=== PATIENT | male | born 1995 | race Caucasian/White ===

== ENCOUNTER 2021-11-27 17:40 | Emergency (ER) | payer SELFPAY | END 2021-11-27 19:05 | LOC: JD.ED 17:40 | DX: Z53.21 Procedure and treatment not carried out due to patient leaving prior to being seen by health care provider (principal) ==

== ENCOUNTER 2021-11-28 14:29 | Inpatient (IN) | payer SELFPAY ==
[2021-11-28] MEDS ORDERED: Ondansetron 4 MG/2 ML SDV IVPUSH ONE (15:55)
[2021-11-28] MEDS ORDERED: Sodium Chloride 0.9% 1,000 ML IV ONE ×2 (15:55→17:26)
[2021-11-28] MEDS: Sodium Chloride 0.9% 10 ML Syringe FLUSH PRN ×3 (16:09→21:12)
[2021-11-28 16:41] LABS: ESTIMATED GFR 121 mL/min (>60)
[2021-11-28] MEDS ORDERED: HYDROmorphone 0.5 MG/0.5 ML Syringe IVPUSH ONE (17:26)
[2021-11-28] MEDS ORDERED: Iopamidol 612 MG/ML 100 ML Bottle IVPUSH ONE (17:53)
[2021-11-28] MEDS ORDERED: Ondansetron 4 MG Tab.DIS PO PRN (19:53)
[2021-11-28] MEDS: Dextrose 5%-0.45% NaCl 1,000 ML IV SCH (21:11)
[2021-11-28] MEDS ORDERED: Thiamine 200 MG/2 ML MDV IVPUSH ONE (21:26)
[2021-11-28] MEDS: HYDROmorphone 0.5 MG/0.5 ML Syringe IVPUSH PRN (21:29)
[2021-11-28] MEDS: LORazepam 2 MG/ML SDV IVPUSH PRN (21:44)
[2021-11-28] MEDS: Enoxaparin 30 MG/0.3 ML Syringe SUBCUT SCH (22:26)
[2021-11-29] MEDS: HYDROmorphone 0.5 MG/0.5 ML Syringe IVPUSH PRN ×5 (01:41→22:18)
[2021-11-29] MEDS: Dextrose 5%-0.45% NaCl 1,000 ML IV SCH ×3 (05:12→21:36)
[2021-11-29] MEDS: Enoxaparin 30 MG/0.3 ML Syringe SUBCUT SCH (10:11)
[2021-11-29] MEDS: Pantoprazole 40 MG Vial IVPUSH SCH (10:11)
[2021-11-29] MEDS: LORazepam 2 MG/ML SDV IVPUSH PRN ×3 (12:41→22:18)
[2021-11-29] MEDS: Potassium Chloride 10 MEQ in Premix Bag 1 BAG IV SCH ×3 (14:31→16:36)
[2021-11-29] MEDS ORDERED: Magnesium Hydroxide 400 MG/5 ML Susp 30 ML Cup PO PRN (15:13)
[2021-11-29] MEDS: Thiamine 100 MG Tab PO SCH (21:36)
[2021-11-30] MEDS: HYDROmorphone 0.5 MG/0.5 ML Syringe IVPUSH PRN (05:03)
[2021-11-30] MEDS: LORazepam 2 MG/ML SDV IVPUSH PRN ×4 (05:04→18:37)
[2021-11-30] MEDS: Dextrose 5%-0.45% NaCl 1,000 ML IV SCH (05:04)
[2021-11-30] MEDS: Pantoprazole 40 MG Vial IVPUSH SCH (09:08)
[2021-11-30] MEDS: Enoxaparin 30 MG/0.3 ML Syringe SUBCUT SCH (09:08)
[2021-11-30] MEDS ORDERED: LORazepam 1 MG Tab PO SCH (14:30)
[2021-11-30] MEDS ORDERED: LORazepam 2 MG/ML SDV IV SCH (14:30)
[2021-11-30] MEDS ORDERED: LORazepam 2 MG/ML SDV IVPUSH PRN (14:31)
[2021-11-30] MEDS: LORazepam 2 MG/ML SDV IVPUSH ONE ×3 (14:50→15:03)
[2021-11-30] MEDS ORDERED: LORazepam 2 MG/ML SDV IVPUSH ONE (16:00)
[2021-11-30] MEDS ORDERED: PHENobarbital Sodium 65 MG/ML SDV IVPUSH ONE ×2 (17:35→18:17)
[2021-11-30] MEDS ORDERED: PHENobarbital Sodium 65 MG/ML SDV ONE (18:22)
[2021-12-01] MEDS: Thiamine 100 MG Tab PO SCH ×2 (01:06→21:45)
[2021-12-01] MEDS: HYDROmorphone 0.5 MG/0.5 ML Syringe IVPUSH PRN (05:24)
[2021-12-01] MEDS: Enoxaparin 30 MG/0.3 ML Syringe SUBCUT SCH (08:08)
[2021-12-01] MEDS: Pantoprazole 40 MG Vial IVPUSH SCH (08:08)
[2021-12-01] MEDS: LORazepam 2 MG/ML SDV IVPUSH PRN ×2 (08:17→20:12)
[2021-12-02 07:42] LABS: ESTIMATED GFR 121 mL/min (>60)
[2021-12-02] MEDS: Pantoprazole 40 MG Vial IVPUSH SCH (08:42)
[2021-12-02] MEDS: Enoxaparin 30 MG/0.3 ML Syringe SUBCUT SCH (08:42)
[2021-12-02] MEDS: Potassium Chloride 10 MEQ in Premix Bag 1 BAG IV SCH ×4 (08:44→11:51)
[2021-12-02] MEDS: LORazepam 2 MG/ML SDV IVPUSH PRN ×2 (08:55→16:44)
[2021-12-02] MEDS: HYDROmorphone 0.5 MG/0.5 ML Syringe IVPUSH PRN ×2 (12:16→21:22)
[2021-12-02] MEDS: Thiamine 100 MG Tab PO SCH (21:19)
[2021-12-03] MEDS: Enoxaparin 30 MG/0.3 ML Syringe SUBCUT SCH (09:16)
[2021-12-03] MEDS: Pantoprazole 40 MG Vial IVPUSH SCH (09:17)
[2021-12-03] MEDS: traMADol 50 MG Tab PO PRN ×2 (09:46→16:28)
[2021-12-03] MEDS: Thiamine 100 MG Tab PO SCH (20:02)
[2021-12-04] MEDS: Pantoprazole 40 MG Vial IVPUSH SCH (09:50)
[2021-12-04] MEDS: Enoxaparin 30 MG/0.3 ML Syringe SUBCUT SCH (09:50)
== END 2021-12-04 13:07 | disposition home or self-care (01) | DRG 439 ==
LOC: JD.ED 14:29 → JD.ICU 20:00 → UNDOADMIN 20:00 → JD.MS 11-29 18:49 → JD.ICU 11-30 18:27 → JD.MS 12-03 08:07
PROVIDERS: ADMIT Physician Assistant; ATTEND Pediatrics
DX: K85.20 Alcohol induced acute pancreatitis without necrosis or infection (principal); F10.231 Alcohol dependence with withdrawal delirium; K70.10 Alcoholic hepatitis without ascites; E86.0 Dehydration; K29.00 Acute gastritis without bleeding; D69.6 Thrombocytopenia, unspecified
CPT/HCPCS: 36415; 74177; 74177-26; 80048; 80053; 80307; 81001; 83690; 83735; 84484; 85025; 86140; 96361; 96374; 96375; 99283; 99285-25; A9270-GY; C9113; J1170; J1650; J2060; J2405; J2560; J3411; J3480; J3490; J7030; J7042; Q9967

== ENCOUNTER 2022-01-23 22:26 | Emergency (ER) | payer SELFPAY ==
[2022-01-23] MEDS ORDERED: Diphtheria,Pertussis(Acell),Tetanus Vaccine 0.5 ML Syringe IM ONE ×2 (23:13→23:48)
== END 2022-01-24 00:08 | disposition home or self-care (01) ==
LOC: JD.ED 22:26
DX: Z48.00 Encounter for change or removal of nonsurgical wound dressing (principal); Z23 Encounter for immunization; Z72.0 Tobacco use
CPT/HCPCS: 90471; 90715; 99282-25

== ENCOUNTER 2022-04-13 18:36 | Inpatient (IN) | payer SELFPAY ==
[2022-04-13] MEDS ORDERED: Sodium Chloride 0.9% 10 ML Syringe FLUSH PRN (19:17)
[2022-04-13] MEDS ORDERED: Sodium Chloride 0.9% 1,000 ML IV STA ×2 (19:39→21:42)
[2022-04-13] MEDS ORDERED: HYDROmorphone 0.5 MG/0.5 ML Syringe IVPUSH ONE ×2 (19:39→21:03)
[2022-04-13] MEDS ORDERED: Ondansetron 4 MG/2 ML SDV IVPUSH ONE (19:39)
[2022-04-13 20:52] LABS: ESTIMATED GFR 106 mL/min (>60)
[2022-04-13] MEDS ORDERED: Ketorolac 30 MG/ML SDV IVPUSH ONE (21:06)
[2022-04-13] MEDS ORDERED: Iopamidol 612 MG/ML 100 ML Bottle IVPUSH ONE (23:31)
[2022-04-14] MEDS ORDERED: Ondansetron 4 MG/2 ML SDV IVPUSH PRN ×2 (00:40→01:06)
[2022-04-14] MEDS: HYDROmorphone 0.5 MG/0.5 ML Syringe IVPUSH PRN ×10 (00:53→23:06)
[2022-04-14] MEDS: LORazepam 2 MG/ML SDV IVPUSH PRN ×6 (03:11→23:05)
[2022-04-14] MEDS: Sodium Chloride 0.9% 1,000 ML IV SCH ×4 (03:39→21:09)
[2022-04-14] MEDS ORDERED: chlordiazePOXIDE 10 MG Cap PO PRN (07:45)
[2022-04-14] MEDS: Heparin Sodium 5,000 Units/ML Vial SUBCUT SCH ×2 (10:00→17:13)
[2022-04-14] MEDS: Ketorolac 30 MG/ML SDV IVPUSH PRN (13:56)
[2022-04-15] MEDS: LORazepam 2 MG/ML SDV IVPUSH PRN ×3 (01:35→05:56)
[2022-04-15] MEDS: HYDROmorphone 0.5 MG/0.5 ML Syringe IVPUSH PRN ×8 (01:35→20:23)
[2022-04-15] MEDS: Heparin Sodium 5,000 Units/ML Vial SUBCUT SCH ×3 (01:35→17:36)
[2022-04-15] MEDS: Sodium Chloride 0.9% 1,000 ML IV SCH (02:53)
[2022-04-15] MEDS: Dextrose 5%-0.45% NaCl 1,000 ML IV SCH ×2 (08:07→15:46)
[2022-04-15] MEDS: Ketorolac 30 MG/ML SDV IVPUSH PRN (12:10)
[2022-04-16] MEDS: HYDROmorphone 0.5 MG/0.5 ML Syringe IVPUSH PRN ×6 (00:02→18:57)
[2022-04-16] MEDS: Dextrose 5%-0.45% NaCl 1,000 ML IV SCH ×3 (01:40→13:37)
[2022-04-16] MEDS: Heparin Sodium 5,000 Units/ML Vial SUBCUT SCH ×2 (02:19→08:52)
[2022-04-16] MEDS ORDERED: Iopamidol 755 Mg/ML 100 ML Bottle IVPUSH ONE (07:34)
[2022-04-16] MEDS ORDERED: Sodium Chloride 0.9% 10 ML Syringe FLUSH PRN (07:34)
[2022-04-16] MEDS ORDERED: Magnesium Sulfate/Water 2 GM in Premix Bag 1 BAG IV ONE (09:02)
[2022-04-16] MEDS ORDERED: Dextrose 5%-0.45% NaCl 1,000 ML IV SCH (09:15)
[2022-04-16] MEDS: Potassium Chloride 10 MEQ in Premix Bag 1 BAG IV SCH ×4 (11:55→15:05)
[2022-04-16] MEDS: Thiamine 200 MG/2 ML MDV IVPUSH SCH (11:58)
[2022-04-16] MEDS: Folic Acid 50 MG/10 ML MDV IV SCH (12:09)
[2022-04-16] MEDS ORDERED: Sodium Phosphate 30 MMOLE in Sodium Chloride 0.9% 250 ML IV ONE (13:00)
[2022-04-16] MEDS: LORazepam 2 MG/ML SDV IVPUSH PRN (18:58)
[2022-04-17] MEDS: HYDROmorphone 0.5 MG/0.5 ML Syringe IVPUSH PRN ×3 (01:03→20:30)
[2022-04-17] MEDS: Folic Acid 50 MG/10 ML MDV IV SCH (09:52)
[2022-04-17] MEDS: Thiamine 200 MG/2 ML MDV IVPUSH SCH (09:52)
[2022-04-17] MEDS: Dextrose 5%-0.45% NaCl 1,000 ML IV SCH ×2 (11:38→23:40)
[2022-04-17] MEDS: LORazepam 2 MG/ML SDV IVPUSH PRN (23:12)
[2022-04-18] MEDS: HYDROmorphone 0.5 MG/0.5 ML Syringe IVPUSH PRN (05:03)
[2022-04-18] MEDS: Thiamine 200 MG/2 ML MDV IVPUSH SCH (09:58)
[2022-04-18] MEDS: Folic Acid 50 MG/10 ML MDV IV SCH (10:02)
[2022-04-18] MEDS: Dextrose 5%-0.45% NaCl 1,000 ML IV SCH (13:19)
[2022-04-18] MEDS: Ketorolac 30 MG/ML SDV IVPUSH PRN (13:24)
[2022-04-18] MEDS: Potassium Chloride 20 MEQ Tab.ER PO SCH ×2 (16:12→22:47)
[2022-04-19] MEDS: Dextrose 5%-0.45% NaCl 1,000 ML IV SCH (02:33)
[2022-04-19] MEDS ORDERED: Magnesium Oxide 400 MG Tab PO SCH (09:00)
[2022-04-19] MEDS ORDERED: Potassium Chloride 20 MEQ Tab.ER PO ONE (09:00)
[2022-04-19] MEDS: Thiamine 200 MG/2 ML MDV IVPUSH SCH (09:21)
[2022-04-19] MEDS ORDERED: LORazepam 0.5 MG Tab PO ONE (09:22)
[2022-04-19] MEDS ORDERED: Thiamine 100 MG Tab PO SCH (09:30)
== END 2022-04-19 12:17 | disposition home or self-care (01) | DRG 439 ==
LOC: JD.ED 18:36 → JD.MS 22:00 → JD.ICU 04-14 09:58 → JD.MS 04-18 11:04
PROVIDERS: ADMIT Internal Medicine; ATTEND Internal Medicine Cardiovascular Disease
DX: K85.20 Alcohol induced acute pancreatitis without necrosis or infection (principal); F10.939 Alcohol use, unspecified with withdrawal, unspecified; E86.0 Dehydration; K76.0 Fatty (change of) liver, not elsewhere classified; E87.6 Hypokalemia; E83.42 Hypomagnesemia; E83.39 Other disorders of phosphorus metabolism; Z79.899 Other long term (current) drug therapy
CPT/HCPCS: 36415; 74160; 74160-26; 74177; 74177-26; 80048; 80053; 80307; 82947; 83690; 83735; 84100; 85025; 85027; 86140; 96361; 96374; 96375; 96376; 99223; 99232; 99233; 99239; 99285; 99285-25; A9270-GY; J1170; J1644; J1885; J2060; J2405; J3411; J3475; J3480; J3490; J7030; J7042; J7050; Q9967

== ENCOUNTER 2022-07-28 13:09 | Inpatient (IN) | payer SELFPAY ==
[2022-07-28] MEDS ORDERED: LORazepam 2 MG/ML SDV IVPUSH ONE ×6 (13:40→22:55)
[2022-07-28] MEDS ORDERED: Ondansetron 4 MG/2 ML SDV IVPUSH ONE (13:40)
[2022-07-28] MEDS ORDERED: Sodium Chloride 0.9% 1,000 ML IV ONE ×3 (13:40→20:15)
[2022-07-28] MEDS ORDERED: Pantoprazole 40 MG Vial IVPUSH ONE (13:41)
[2022-07-28] MEDS ORDERED: Sodium Chloride 0.9% 10 ML Syringe FLUSH PRN (13:41)
[2022-07-28] MEDS ORDERED: Iopamidol 612 MG/ML 100 ML Bottle IVPUSH ONE (13:43)
[2022-07-28 14:01] LABS: BASOPHILS ABSOLUTE AUTO 0.01 K/mm3 (0.01-0.08); BASOPHILS PERCENT AUTO 0.1 % (0.1-1.2); EOSINOPHILS ABSOLUTE AUTO 0.01 K/mm3 (0.04-0.54); EOSINOPHILS PERCENT AUTO 0.1 (0.8-7.0); HEMATOCRIT 44.8 % (40.1-51.0); HEMOGLOBIN 15.5 gm/dl (13.7-17.5); IMMATURE GRAN ABSOLUTE AUTO 0.02 K/mm3 (0.00-0.10); IMMATURE GRAN PERCENT AUTO 0.2 % (<=1.0); LYMPHOCYTES ABSOLUTE AUTO 0.56 K/mm3 (1.32-3.57); LYMPHOCYTES PERCENT AUTO 5.3 % (21.8-53.1); MEAN CORPUSCULAR HEMOGLOBIN 31.9 pg (25.7-32.2); MEAN CORPUSCULAR HGB CONC 34.6 g/dl (32.2-35.5); MEAN CORPUSCULAR VOLUME 92.2 fl (79.0-92.2); MEAN PLATELET VOLUME 10.2 fl (9.4-12.3); MONOCYTES ABSOLUTE AUTO 0.71 K/mm3 (0.30-0.82); MONOCYTES PERCENT AUTO 6.7 % (5.3-12.2); NEUTROPHILS ABSOLUTE AUTO 9.34 K/mm3 (1.78-5.38); NEUTROPHILS PERCENT AUTO 87.6 % (34.0-67.9); PLATELET COUNT,PLT 114 K/mm3 (163-337); RED BLOOD CELL COUNT 4.86 M/mm3 (4.63-6.08); WHITE BLOOD CELL COUNT,WBC 10.65 K/mm3 (4.23-9.07)
[2022-07-28] MEDS: Sodium Chloride 0.9% 10 ML Syringe FLUSH PRN ×2 (14:03→14:13)
[2022-07-28 14:18] LABS: ALBUMIN 4.3 g/dl (3.4-5.0); ANION GAP 14.8 (5-15); BILIRUBIN TOTAL 1.3 mg/dL (0.2-1.0); BUN/CREATININE RATIO 6.4 (14-18); CALCIUM 9.2 mg/dL (8.5-10.1); CREATININE 1.1 mg/dL (0.7-1.3); EST CRCL DRUG DOSING (CG) 91.03 mL/min; ETHANOL BLOOD MEDICAL 0.08 gm% (0.00); POTASSIUM,K 2.8 mEq/L (3.5-5.1); PROTEIN TOTAL,TP 8.8 g/dl (6.4-8.2)
[2022-07-28] MEDS ORDERED: Potassium Chloride 10 MEQ in Premix Bag 1 BAG IV ONE (15:30)
[2022-07-28] MEDS ORDERED: Morphine 4 MG/ML Syringe IVPUSH ONE (15:31)
[2022-07-28] MEDS ORDERED: Acetaminophen 325 MG Tab PO PRN (15:59)
[2022-07-28] MEDS ORDERED: Ondansetron 4 MG/2 ML SDV IV PRN (15:59)
[2022-07-28] MEDS ORDERED: Sodium Chloride 0.9% 1,000 ML IV SCH (16:00)
[2022-07-28] MEDS ORDERED: Magnesium Sulfate/Water 4 GM in Premix Bag 1 BAG IV ONE (16:07)
[2022-07-28] MEDS ORDERED: Folic Acid 50 MG/10 ML MDV IV SCH (16:15)
[2022-07-28] MEDS ORDERED: Sodium Chloride 0.45% with KCl 1,000 ML IV SCH (16:15)
[2022-07-28 16:21] LABS: APPEARANCE,URINE CLEAR (Clear); BILIRUBIN,URINE NEGATIVE (Negative); COLOR,URINE YELLOW (Yellow); GLUCOSE,URINE NEGATIVE (Negative); KETONES,URINE TRACE (Negative); LEUKOCYTE ESTERASE,URINE NEGATIVE (Negative); NITRITE,URINE NEGATIVE (Negative); OCCULT BLOOD,URINE TRACE-INTACT (Negative); PROTEIN,URINE 1+ (Negative); UROBILINOGEN,URINE >=8.0 (0.2-1.0)
[2022-07-28 16:28] LABS: BARBITURATE SCREEN,URINE NEGATIVE (CUTOFF=200); BENZODIAZEPINES SCREEN,URINE PRESUMPTIVE POSITIVE (CUTOFF=150); BUPRENORPHINE SCREEN,URINE NEGATIVE (CUTOFF=10); METHADONE SCREEN, URINE NEGATIVE (CUT0FF=200); METHAMPHETAMINES SCREEN, URINE NEGATIVE (CUTOFF=500); OXYCODONE SCREEN,URINE NEGATIVE (CUT0FF=100); PROPOXYPHENE SCREEN,URINE NEGATIVE (CUTOFF=300); THC SCREEN,URINE 20 NG/ML PRESUMPTIVE POSITIVE (CUTOFF=50)
[2022-07-28 16:45] LABS: BACTERIA,URINE FEW /hpf (FEW); MUCUS,URINE FEW /hpf (FEW); SQUAMOUS EPITHELIAL CELLS,UR 0-5 /hpf (0-5); WBC,URINE 0-5 /hpf (0-5)
[2022-07-28] MEDS ORDERED: Potassium Phosphates 15 MMOLE in Sodium Chloride 0.9% 250 ML IV SCH (16:45)
[2022-07-28 17:11] LABS: INR 1.12; PROTHROMBIN TIME 11.9 SECONDS (9.7-12.0)
[2022-07-28 17:13] LABS: PTT,PARTIAL THROMBOPLSTIN TIME 26.2 SECONDS (21.7-31.4)
[2022-07-28 17:24] LABS: AMPHETAMINES SCREEN, URINE NEGATIVE (CUTOFF=500)
[2022-07-28] MEDS: LORazepam 2 MG/ML SDV IV SCH ×4 (17:55→23:40)
[2022-07-28] MEDS: Potassium Chloride 10 MEQ in Premix Bag 1 BAG IV SCH ×3 (17:59→20:36)
[2022-07-28] MEDS: oxyCODONE 5 MG Tab PO PRN (18:04)
[2022-07-28] MEDS: Thiamine 200 MG/2 ML MDV IVPUSH SCH (18:04)
[2022-07-28] MEDS: HYDROmorphone 0.5 MG/0.5 ML Syringe IVPUSH PRN ×2 (18:09→20:35)
[2022-07-28] MEDS: Folic Acid 1 MG Tab PO SCH (20:15)
[2022-07-28] MEDS ORDERED: PHENobarbital Sodium 65 MG/ML SDV IVPUSH ONE (22:51)
[2022-07-28] MEDS ORDERED: PHENobarbital Sodium 65 MG/ML SDV ONE (23:24)
[2022-07-29] MEDS: LORazepam 2 MG/ML SDV IV SCH ×3 (02:17→17:11)
[2022-07-29 07:27] LABS: A/G RATIO 0.9 (1-2); ALBUMIN 3.6 g/dl (3.4-5.0); ANION GAP 10.9 (5-15); BILIRUBIN TOTAL 1.1 mg/dL (0.2-1.0); BUN/CREATININE RATIO 6.3 (14-18); CALCIUM 8.9 mg/dL (8.5-10.1); CREATININE 0.8 mg/dL (0.7-1.3); EST CRCL DRUG DOSING (CG) 129.68 mL/min; MAGNESIUM 2.3 mg/dL (1.8-2.4); POTASSIUM,K 3.9 mEq/L (3.5-5.1); PROTEIN TOTAL,TP 7.6 g/dl (6.4-8.2)
[2022-07-29 07:34] LABS: BASOPHILS ABSOLUTE AUTO 0.01 K/mm3 (0.01-0.08); BASOPHILS PERCENT AUTO 0.2 % (0.1-1.2); EOSINOPHILS ABSOLUTE AUTO 0.11 K/mm3 (0.04-0.54); HEMATOCRIT 43.3 % (40.1-51.0); IMMATURE GRAN ABSOLUTE AUTO 0.01 K/mm3 (0.00-0.10); IMMATURE GRAN PERCENT AUTO 0.2 % (<=1.0); LYMPHOCYTES ABSOLUTE AUTO 0.48 K/mm3 (1.32-3.57); LYMPHOCYTES PERCENT AUTO 8.8 % (21.8-53.1); MEAN CORPUSCULAR HEMOGLOBIN 30.9 pg (25.7-32.2); MEAN CORPUSCULAR HGB CONC 32.3 g/dl (32.2-35.5); MEAN CORPUSCULAR VOLUME 95.6 fl (79.0-92.2); MEAN PLATELET VOLUME 10.2 fl (9.4-12.3); MONOCYTES PERCENT AUTO 7.3 % (5.3-12.2); NEUTROPHILS ABSOLUTE AUTO 4.45 K/mm3 (1.78-5.38); NEUTROPHILS PERCENT AUTO 81.5 % (34.0-67.9); PLATELET COUNT,PLT 96 K/mm3 (163-337); RED BLOOD CELL COUNT 4.53 M/mm3 (4.63-6.08); WHITE BLOOD CELL COUNT,WBC 5.46 K/mm3 (4.23-9.07)
[2022-07-29] MEDS: Thiamine 200 MG/2 ML MDV IVPUSH SCH (08:28)
[2022-07-29] MEDS: Famotidine 20 MG/2 ML SDV IVPUSH SCH (08:28)
[2022-07-29] MEDS: Folic Acid 1 MG Tab PO SCH (08:29)
[2022-07-29] MEDS ORDERED: Potassium Phosphates 15 MMOLE in Sodium Chloride 0.9% 250 ML IV ONE (08:30)
[2022-07-29] MEDS: D5 1/2 NS w/ 20 mEq/L KCl 1,000 ML IV SCH ×2 (08:52→22:54)
[2022-07-29] MEDS ORDERED: Pantoprazole 40 MG Vial IVPUSH SCH (09:00)
[2022-07-29 09:27] LABS: SLIDE REVIEW ABNORMAL SMEAR
[2022-07-30] MEDS: HYDROmorphone 0.5 MG/0.5 ML Syringe IVPUSH PRN (02:50)
[2022-07-30 07:45] LABS: BASOPHILS ABSOLUTE AUTO 0.03 K/mm3 (0.01-0.08); BASOPHILS PERCENT AUTO 0.4 % (0.1-1.2); EOSINOPHILS PERCENT AUTO 2.4 (0.8-7.0); HEMOGLOBIN 14.1 gm/dl (13.7-17.5); IMMATURE GRAN ABSOLUTE AUTO 0.02 K/mm3 (0.00-0.10); IMMATURE GRAN PERCENT AUTO 0.2 % (<=1.0); LYMPHOCYTES ABSOLUTE AUTO 0.83 K/mm3 (1.32-3.57); LYMPHOCYTES PERCENT AUTO 10.1 % (21.8-53.1); MEAN CORPUSCULAR HEMOGLOBIN 31.1 pg (25.7-32.2); MEAN CORPUSCULAR HGB CONC 33.6 g/dl (32.2-35.5); MEAN CORPUSCULAR VOLUME 92.5 fl (79.0-92.2); MEAN PLATELET VOLUME 9.3 fl (9.4-12.3); NEUTROPHILS PERCENT AUTO 75.9 % (34.0-67.9); PLATELET COUNT,PLT 122 K/mm3 (163-337); RED BLOOD CELL COUNT 4.54 M/mm3 (4.63-6.08); WHITE BLOOD CELL COUNT,WBC 8.18 K/mm3 (4.23-9.07)
[2022-07-30] MEDS: oxyCODONE 5 MG Tab PO PRN ×3 (08:32→20:54)
[2022-07-30] MEDS: Thiamine 200 MG/2 ML MDV IVPUSH SCH (08:32)
[2022-07-30] MEDS: Folic Acid 1 MG Tab PO SCH (08:32)
[2022-07-30] MEDS: Famotidine 20 MG/2 ML SDV IVPUSH SCH (08:32)
[2022-07-30 08:39] LABS: A/G RATIO 0.8 (1-2); ALBUMIN 3.4 g/dl (3.4-5.0); ANION GAP 13.7 (5-15); BILIRUBIN TOTAL 1.1 mg/dL (0.2-1.0); BUN/CREATININE RATIO 6.7 (14-18); CALCIUM 9.6 mg/dL (8.5-10.1); CREATININE 0.6 mg/dL (0.7-1.3); EST CRCL DRUG DOSING (CG) 172.9 mL/min; MAGNESIUM 1.9 mg/dL (1.8-2.4); PHOSPHORUS 3.3 mg/dL (2.6-4.7); POTASSIUM,K 3.7 mEq/L (3.5-5.1); PROTEIN TOTAL,TP 7.9 g/dl (6.4-8.2)
[2022-07-30] MEDS ORDERED: LORazepam 1 MG Tab PO SCH (09:45)
[2022-07-30] MEDS: D5 1/2 NS w/ 20 mEq/L KCl 1,000 ML IV SCH (12:22)
[2022-07-30] MEDS: chlordiazePOXIDE 10 MG Cap PO SCH (12:57)
[2022-07-31] MEDS: D5 1/2 NS w/ 20 mEq/L KCl 1,000 ML IV SCH ×2 (01:23→15:00)
[2022-07-31 05:08] LABS: BASOPHILS ABSOLUTE AUTO 0.01 K/mm3 (0.01-0.08); BASOPHILS PERCENT AUTO 0.2 % (0.1-1.2); EOSINOPHILS ABSOLUTE AUTO 0.21 K/mm3 (0.04-0.54); EOSINOPHILS PERCENT AUTO 3.5 (0.8-7.0); HEMATOCRIT 38.8 % (40.1-51.0); HEMOGLOBIN 13.5 gm/dl (13.7-17.5); IMMATURE GRAN ABSOLUTE AUTO 0.01 K/mm3 (0.00-0.10); IMMATURE GRAN PERCENT AUTO 0.2 % (<=1.0); LYMPHOCYTES ABSOLUTE AUTO 0.71 K/mm3 (1.32-3.57); LYMPHOCYTES PERCENT AUTO 11.7 % (21.8-53.1); MEAN CORPUSCULAR HEMOGLOBIN 31.8 pg (25.7-32.2); MEAN CORPUSCULAR HGB CONC 34.8 g/dl (32.2-35.5); MEAN CORPUSCULAR VOLUME 91.3 fl (79.0-92.2); MEAN PLATELET VOLUME 9.1 fl (9.4-12.3); MONOCYTES ABSOLUTE AUTO 0.92 K/mm3 (0.30-0.82); MONOCYTES PERCENT AUTO 15.2 % (5.3-12.2); NEUTROPHILS ABSOLUTE AUTO 4.21 K/mm3 (1.78-5.38); NEUTROPHILS PERCENT AUTO 69.2 % (34.0-67.9); PLATELET COUNT,PLT 148 K/mm3 (163-337); RED BLOOD CELL COUNT 4.25 M/mm3 (4.63-6.08); WHITE BLOOD CELL COUNT,WBC 6.07 K/mm3 (4.23-9.07)
[2022-07-31 05:32] LABS: A/G RATIO 0.7 (1-2); ALBUMIN 3.2 g/dl (3.4-5.0); ANION GAP 13.5 (5-15); BILIRUBIN TOTAL 0.7 mg/dL (0.2-1.0); CALCIUM 9.3 mg/dL (8.5-10.1); CREATININE 0.8 mg/dL (0.7-1.3); EST CRCL DRUG DOSING (CG) 129.68 mL/min; MAGNESIUM 1.8 mg/dL (1.8-2.4); POTASSIUM,K 3.5 mEq/L (3.5-5.1); PROTEIN TOTAL,TP 7.6 g/dl (6.4-8.2)
[2022-07-31] MEDS: chlordiazePOXIDE 10 MG Cap PO SCH (08:47)
[2022-07-31] MEDS: Folic Acid 1 MG Tab PO SCH (08:48)
[2022-07-31] MEDS: Famotidine 20 MG/2 ML SDV IVPUSH SCH (08:48)
[2022-07-31] MEDS: Thiamine 200 MG/2 ML MDV IVPUSH SCH (08:51)
[2022-07-31] MEDS: oxyCODONE 5 MG Tab PO PRN (10:00)
[2022-08-01] MEDS: D5 1/2 NS w/ 20 mEq/L KCl 1,000 ML IV SCH ×2 (05:14→20:07)
[2022-08-01 05:24] LABS: BASOPHILS ABSOLUTE AUTO 0.01 K/mm3 (0.01-0.08); BASOPHILS PERCENT AUTO 0.2 % (0.1-1.2); EOSINOPHILS ABSOLUTE AUTO 0.18 K/mm3 (0.04-0.54); EOSINOPHILS PERCENT AUTO 4.1 (0.8-7.0); HEMATOCRIT 40.4 % (40.1-51.0); HEMOGLOBIN 13.7 gm/dl (13.7-17.5); LYMPHOCYTES PERCENT AUTO 20.4 % (21.8-53.1); MEAN CORPUSCULAR HEMOGLOBIN 31.3 pg (25.7-32.2); MEAN CORPUSCULAR HGB CONC 33.9 g/dl (32.2-35.5); MEAN CORPUSCULAR VOLUME 92.2 fl (79.0-92.2); MEAN PLATELET VOLUME 8.9 fl (9.4-12.3); MONOCYTES PERCENT AUTO 20.4 % (5.3-12.2); NEUTROPHILS ABSOLUTE AUTO 2.43 K/mm3 (1.78-5.38); NEUTROPHILS PERCENT AUTO 54.9 % (34.0-67.9); PLATELET COUNT,PLT 176 K/mm3 (163-337); RED BLOOD CELL COUNT 4.38 M/mm3 (4.63-6.08); WHITE BLOOD CELL COUNT,WBC 4.42 K/mm3 (4.23-9.07)
[2022-08-01 05:54] LABS: A/G RATIO 0.8 (1-2); ALBUMIN 3.6 g/dl (3.4-5.0); ANION GAP 11.7 (5-15); BILIRUBIN TOTAL 0.4 mg/dL (0.2-1.0); BUN/CREATININE RATIO 8.6 (14-18); CALCIUM 9.6 mg/dL (8.5-10.1); CREATININE 0.7 mg/dL (0.7-1.3); EST CRCL DRUG DOSING (CG) 148.2 mL/min; MAGNESIUM 1.7 mg/dL (1.8-2.4); POTASSIUM,K 3.7 mEq/L (3.5-5.1); PROTEIN TOTAL,TP 8.1 g/dl (6.4-8.2)
[2022-08-01 06:20] LABS: SLIDE REVIEW ABNORMAL SMEAR
[2022-08-01] MEDS: chlordiazePOXIDE 10 MG Cap PO SCH (08:13)
[2022-08-01] MEDS: Thiamine 200 MG/2 ML MDV IVPUSH SCH (08:13)
[2022-08-01] MEDS: Famotidine 20 MG/2 ML SDV IVPUSH SCH (08:13)
[2022-08-02 06:32] LABS: ANION GAP 11.8 (5-15); BUN/CREATININE RATIO 11.4 (14-18); CALCIUM 9.6 mg/dL (8.5-10.1); CREATININE 0.7 mg/dL (0.7-1.3); EST CRCL DRUG DOSING (CG) 148.2 mL/min; POTASSIUM,K 3.8 mEq/L (3.5-5.1)
[2022-08-02] MEDS: chlordiazePOXIDE 10 MG Cap PO SCH (09:09)
[2022-08-02] MEDS: Famotidine 20 MG/2 ML SDV IVPUSH SCH (09:09)
[2022-08-02] MEDS: Thiamine 200 MG/2 ML MDV IVPUSH SCH (09:09)
== END 2022-08-02 14:20 | disposition home or self-care (01) | DRG 896 ==
LOC: JD.ED 13:09 → JD.MS 15:59 → JD.ICU 21:40 → JD.MS 07-31 19:24
PROVIDERS: ADMIT Internal Medicine; ATTEND Internal Medicine
DX: F10.231 Alcohol dependence with withdrawal delirium (principal); K85.20 Alcohol induced acute pancreatitis without necrosis or infection; E87.6 Hypokalemia; E83.42 Hypomagnesemia; E83.39 Other disorders of phosphorus metabolism; D69.6 Thrombocytopenia, unspecified; K76.0 Fatty (change of) liver, not elsewhere classified; F32.A Depression, unspecified; Z79.899 Other long term (current) drug therapy
CPT/HCPCS: 36415; 74177; 74177-26; 80048; 80053; 80306; 80307; 81001; 82947; 83690; 83735; 84100; 85025; 85610; 85730; 99285; A9270-GY; C9113; J1170; J2060; J2270; J2405; J2560; J3411; J3475; J3480; J3490; J7030; J7050; Q9967

== ENCOUNTER 2022-09-15 19:10 | Emergency (ER) | payer SELFPAY ==
[2022-09-15] MEDS ORDERED: Sodium Chloride 0.9% 10 ML Syringe FLUSH PRN (19:44)
[2022-09-15] MEDS ORDERED: Metoclopramide 10 MG/2 ML SDV IVPUSH ONE (19:44)
[2022-09-15] MEDS ORDERED: Sodium Chloride 0.9% 1,000 ML IV ONE (19:44)
[2022-09-15 20:25] LABS: BASOPHILS ABSOLUTE AUTO 0.02 K/mm3 (0.01-0.08); BASOPHILS PERCENT AUTO 0.2 % (0.1-1.2); EOSINOPHILS ABSOLUTE AUTO 0.03 K/mm3 (0.04-0.54); EOSINOPHILS PERCENT AUTO 0.4 (0.8-7.0); HEMATOCRIT 40.7 % (40.1-51.0); IMMATURE GRAN ABSOLUTE AUTO 0.01 K/mm3 (0.00-0.10); IMMATURE GRAN PERCENT AUTO 0.1 % (<=1.0); LYMPHOCYTES ABSOLUTE AUTO 1.44 K/mm3 (1.32-3.57); LYMPHOCYTES PERCENT AUTO 17.6 % (21.8-53.1); MEAN CORPUSCULAR HEMOGLOBIN 30.6 pg (25.7-32.2); MEAN CORPUSCULAR HGB CONC 34.4 g/dl (32.2-35.5); MEAN CORPUSCULAR VOLUME 88.9 fl (79.0-92.2); MEAN PLATELET VOLUME 9.8 fl (9.4-12.3); MONOCYTES ABSOLUTE AUTO 0.42 K/mm3 (0.30-0.82); MONOCYTES PERCENT AUTO 5.1 % (5.3-12.2); NEUTROPHILS ABSOLUTE AUTO 6.24 K/mm3 (1.78-5.38); NEUTROPHILS PERCENT AUTO 76.6 % (34.0-67.9); RED BLOOD CELL COUNT 4.58 M/mm3 (4.63-6.08); WHITE BLOOD CELL COUNT,WBC 8.16 K/mm3 (4.23-9.07)
[2022-09-15 20:26] LABS: PLATELET COUNT,PLT 216 K/mm3 (163-337)
[2022-09-15] MEDS ORDERED: diphenhydrAMINE 50 MG/ML SDV IVPUSH ONE (20:32)
[2022-09-15 20:45] LABS: INR 1.05; PROTHROMBIN TIME 11.2 SECONDS (9.7-12.0)
[2022-09-15 20:47] LABS: A/G RATIO 1.1 (1-2); ALBUMIN 4.1 g/dl (3.4-5.0); ANION GAP 15.1 (5-15); BILIRUBIN TOTAL 0.5 mg/dL (0.2-1.0); CALCIUM 9.2 mg/dL (8.5-10.1); EST CRCL DRUG DOSING (CG) 103.74 mL/min; ETHANOL BLOOD MEDICAL 0.21 gm% (0.00); MAGNESIUM 1.9 mg/dL (1.8-2.4); POTASSIUM,K 3.1 mEq/L (3.5-5.1); PROTEIN TOTAL,TP 7.8 g/dl (6.4-8.2)
[2022-09-15] MEDS ORDERED: Iopamidol 612 MG/ML 100 ML Bottle IVPUSH ONE (21:04)
[2022-09-15 22:09] LABS: BARBITURATE SCREEN,URINE NEGATIVE (CUTOFF=200); BENZODIAZEPINES SCREEN,URINE NEGATIVE (CUTOFF=150); BUPRENORPHINE SCREEN,URINE NEGATIVE (CUTOFF=10); METHADONE SCREEN, URINE NEGATIVE (CUT0FF=200); METHAMPHETAMINES SCREEN, URINE NEGATIVE (CUTOFF=500); OXYCODONE SCREEN,URINE NEGATIVE (CUT0FF=100); PROPOXYPHENE SCREEN,URINE NEGATIVE (CUTOFF=300); THC SCREEN,URINE 20 NG/ML NEGATIVE (CUTOFF=50)
[2022-09-15 22:18] LABS: AMPHETAMINES SCREEN, URINE NEGATIVE (CUTOFF=500)
== END 2022-09-15 23:07 | disposition home or self-care (01) ==
LOC: JD.ED 19:10
DX: K29.00 Acute gastritis without bleeding (principal); F10.10 Alcohol abuse, uncomplicated; Y90.1 Blood alcohol level of 20-39 mg/100 ml
CPT/HCPCS: 36415; 74177; 80053; 80306; 80307; 83690; 83735; 85025; 85610; 96361; 96374; 96375; 99284; J1200; J2765; J7030; Q9967

== ENCOUNTER 2022-12-30 02:06 | Emergency (ER) | payer SELFPAY | END 2022-12-30 02:58 | disposition home or self-care (01) | LOC: JD.ED 02:06 | DX: F17.210 Nicotine dependence, cigarettes, uncomplicated | CPT/HCPCS: 99281; 99283 ==